=== PATIENT | female | born 1985 | race Caucasian/White ===

== ENCOUNTER 2019-09-02 09:43 | Outpatient (CLI) | payer OTHER ==
--- NOTE | 2019-09-02 10:22 | MMO ---
Bilateral MAMMO Bilat [facility]ag [facility]. CLINICAL HISTORY: Patient is 34 years old and is seen for diagnostic exam and in the left breast. The patient has no family history of breast cancer. The patient has no personal history of cancer. VIEWS: The views performed were: bilateral craniocaudal with tomosynthesis; bilateral mediolateral oblique with tomosynthesis; and bilateral mediolateral with tomosynthesis. FILMS COMPARED: The present examination has been compared to a prior imaging study performed at [facility] on 09/02/2019. This study has been interpreted with the assistance of computer-aided detection. MAMMOGRAM FINDINGS: The breasts are heterogeneously dense, which could obscure a lesion on mammography. No mammographic or sonograhic abnormality is seen at the site of palpable concern in the left retroarolar breast. There are no suspicious masses, suspicious calcifications, or new areas of architectural distortion. IMPRESSION: THERE IS NO MAMMOGRAPHIC EVIDENCE OF MALIGNANCY. AGE APPROPRIATE SCREENING BASED ON RISK FACTORS IS RECOMMENDED. THE RESULTS OF THIS EXAM WERE SENT TO THE PATIENT. ACR BI-RADS Category 2 - Benign finding MAMMOGRAPHY NOTE: 1. A negative mammogram report should not delay a biopsy if a dominant of clinically suspicious mass is present. 2. Approximately 10% to 15% of breast cancers are not detected by mammography. 3. Adenosis and dense breasts may obscure an underlying neoplasm. Reported by: MICHELLE CHOI MD Electonically Signed: [id number]
--- NOTE | 2019-09-02 12:08 | ULT ---
LEFT BREAST ULTRASOUND: HISTORY: Palpable abnormality in the left areolar breast. FINDINGS: Correlation is made with mammogram of same day. FINDINGS: Sonographic evaluation of the retroareolar region of the left breast demonstrates no abnormality. IMPRESSION: BIRADS category 2 - benign findings. Return to age-appropriate screening based on risk factors.
== END 2019-09-02 09:44 | disposition home or self-care (01) ==
LOC: BICMAMMO 09:43
PROVIDERS: ATTEND Nurse Practitioner Family
DX: N64.4 Mastodynia (principal)
CPT/HCPCS: 77066; G0279